=== PATIENT | male | born 1985 | race Caucasian/White ===

== ENCOUNTER 2016-11-20 13:09 | Emergency (ER) | payer SELFPAY ==
[~2016-11-20] VITALS: Ht 182.9 cm; Wt 75.0 kg
[~2016-11-20 13:09] MED LIST: Z.0.NO CURRENT MEDS
[2016-11-20 13:10] VITALS: BP 141/98; PULSE 103; RESP 14; TEMP 98.5; O2SAT 97
[2016-11-20] MEDS ORDERED: KETOROLAC TROMETHAMINE 60 MG/2 ML (IM) VIAL IM ONE (14:30)
[2016-11-20] MEDS ORDERED: ORPHENADRINE INJ 60 MG/2 ML AMP IM ONE (14:30)
[2016-11-20] MEDS ORDERED: IBUP800T23 PO (14:39)
[2016-11-20] MEDS ORDERED: CYCL1TAB29 PO (14:39)
--- NOTE | 2016-11-20 14:39 | PD ---
HPI Chief Complaint: Musculoskeletal Complaint Time Seen by Provider: 14:30 Travel History International Travel<30 days: No Contact w/Intl Traveler<30days: No Traveled to known affect area: No History of Present Illness HPI 31-year-old male presents to the emergency Department with complaint of right- sided lower back pain after heavy lifting at work yesterday. He has had history of back pain similar to this. Radiates down the back of his right leg. Denies encopresis, incontinence, saddle anesthesias. Denies fever, chills, nausea, vomiting. Denies paresthesias, loss of sensation, decreased range of motion to bilateral lower extremities. Denies fever, chills. Reports nausea without vomiting. Denies IV drug use. Denies cancer. He tried icing and heat the affected area with no relief of pain. Pain is aggravated with movement and walking. No known allergies. Denies significant past medical history. No Other modifying factors or associated signs and symptoms. PFSH Past Medical History Medical History: Denies Significant Hx Social History Alcohol Use: No Tobacco Use: No Allergies-Medications (Allergen,Severity, Reaction): Coded Allergies: No Known Allergies (Verified , 11/20/16) Reported Meds & Prescriptions Reported Meds & Active Scripts Active No Active Prescriptions or Reported Medications Review of Systems Except as stated in HPI: all other systems reviewed are Neg Physical Exam Narrative GENERAL: Well-nourished, well-developed male patient, in no acute distress SKIN: Warm and dry. HEAD: Atraumatic. Normocephalic. EYES: Pupils equal and round. No scleral icterus. No injection or drainage. ENT: Mucosa pink and moist. Airway patent. NECK: Trachea midline. CARDIOVASCULAR: Regular rate. RESPIRATORY: No accessory muscle use. GASTROINTESTINAL: Abdomen soft, non-tender, nondistended. Positive bowel sounds. No hepato-splenomegaly, or palpable masses. No guarding. MUSCULOSKELETAL: Bilateral lower extremities supple and non-tense with 2+ pedal pulses and sensory intact; with full range of motion and 5/5 strength. Active dorsiflexion and extension of bilateral feet. Right straight leg raise is positive for low back pain. Left straight leg raise is negative for low back pain. Ambulatory with guarded gait. Sitting up in bed at 90. No obvious deformities. No clubbing. No cyanosis. No edema. BACK: No midline point tenderness on palpation of the lumbar spine. Tenderness on palpation of right iliosacral area. No obvious deformities. NEUROLOGICAL: Awake and alert. Oriented 3. No obvious cranial nerve deficits. Motor grossly within normal limits. Normal speech. Moves all extremities. 5/5 strength to all extremities. Sensory intact. PSYCHIATRIC: Appropriate mood and affect; insight and judgment normal. Data Data Last Documented VS Vital Signs Date Time Temp Pulse Resp B/P Pulse Ox O2 Delivery O2 Flow Rate FiO2 11/20/16 13:10 98.5 103 14 141/98 97 Orders Ketorolac Inj (Toradol Inj) (11/20/16 14:30) Orphenadrine Inj (Norflex Inj) (11/20/16 14:30) [facility] Medical Decision Making Medical Screen Exam Complete: Yes Emergency Medical Condition: Yes Medical Record Reviewed: Yes Differential Diagnosis Low-back strain, sciatica, low back pain Narrative Course 31-year-old male physical exam consistent with low back strain with right-sided sciatica. Denies encopresis, incontinence, saddle anesthesias. Denies IV drug use. Denies cancer. No midline point tenderness on palpation of the lumbar spine. Toradol and Norflex administered in the ER. Ibuprofen and Flexeril prescribed for home. Patient is medically cleared and stable for discharge. Discussed reasons to return to the emergency department. Instructed patient to follow up with primary care provider. Patient agrees with treatment plan. The patients vital signs are stable and the patient is stable for outpatient follow- up and treatment. Patient discharged home, stable and in no acute distress. Diagnosis Primary Impression: Low back strain Qualified Code: S39.012A - Low back strain, initial encounter Additional Impression: Right-sided low back pain with sciatica Qualified Code: M54.41 - Right-sided low back pain with right-sided sciatica, unspecified chronicity Referrals: Primary Care Physician Patient Instructions: Acute Low Back Pain (ED), General Instructions, Low Back Strain (ED), Sciatica (ED) Departure Forms: Tests/Procedures, Work Release Enter return to work date: Nov 23, 2016 Additional Instructions: Tylenol or ibuprofen as directed and as needed for pain Flexeril as prescribed and as needed for muscle spasms Heating pad and/or ice to affected area to reduce pain Avoid aggravating activities; increase activity as tolerated Follow-up with primary care provider Return to emergency department immediately with worsening of symptoms Med/Other Pt SpecificInfo: Prescription(s) given Scripts Ibuprofen 800 Mg [id number] Mg PO Q6HR PRN (PAIN) #30 TAB Ref 0 Prov:Sarah Peterson 11/20/16 Cyclobenzaprine (Flexeril)10 Mg Tab10 Mg PO TID PRN (MUSCLE SPASM) #30 TAB Ref 0 Prov:Sarah Peterson 11/20/16 Disposition: 01 DISCHARGE HOME Condition: Stable Sarah Peterson Nov 20, 2016 14:39
== END 2016-11-20 14:54 | disposition home or self-care (01) ==
LOC: NEPB 13:09
DX: S39.012A Strain of muscle, fascia and tendon of lower back, initial encounter (principal); M54.41 Lumbago with sciatica, right side; X50.0XXA Overexertion from strenuous movement or load, initial encounter; Y99.0 Civilian activity done for income or pay
CPT/HCPCS: 96372; 99283; J1885; J2360